=== PATIENT | female | born 1980 | race Caucasian/White ===

== ENCOUNTER 2018-02-08 18:54 | Emergency (ER) | payer MEDICAID ==
[~2018-02-08] VITALS: Ht 154.9 cm; Wt 98.0 kg
[2018-02-08 18:56] VITALS: BP 164/105; PULSE 103; RESP 16; TEMP 98.6; O2SAT 100
[2018-02-08] MEDS ORDERED: LEVO75TA3 PO (19:07)
[2018-02-08] MEDS ORDERED: MONT10TA2 PO (19:07)
[2018-02-08] MEDS ORDERED: AMLO5TAB2 PO (19:07)
[2018-02-08] MEDS ORDERED: LORA-650 PO (19:07)
[2018-02-08] MEDS ORDERED: ALBUAER3 INH (19:07)
[2018-02-08] MEDS ORDERED: CYMB60CA PO (19:07)
[2018-02-08] MEDS ORDERED: SODIUM CHLOR 0.9% 1000 ML INJ 1,000 ML IV SCH (19:22)
--- NOTE | 2018-02-08 19:22 | PD ---
HPI Chief Complaint: Fall Time Seen by Provider: 19:07 Travel History International Travel<30 days: No Contact w/Intl Traveler<30days: No Traveled to known affect area: No History of Present Illness HPI 37-year-old female with PMH of asthma, hypertension presents to the ED via [facility] for evaluation after being thrown from a horse. Patient states that she was riding with her 12-year-old daughter when her daughter's horse took off running. She states that her course ran after the first worse and bucked, throwing her into the ear. She states that she landed on the back of her head and endorses brief loss of consciousness. On presentation she complains of 10/ 10 left hip pain, 7/10 posterior headache and 5/10 left shoulder pain. She endorses accompanying nausea. She denies dizziness, vision changes, chest pain , palpitations, shortness of breath, abdominal pain, numbness, tingling, weakness of the extremities. She has not been ambulatory since the accident. She denies risk of , states that she is currently menstruating. PFSH Past Medical History ?: Unknown LMP: currently on it Past Surgical History Section: Yes (x2) Tonsillectomy: Yes Social History Alcohol Use: Yes (rare) Tobacco Use: No Substance Use: No Allergies-Medications (Allergen,Severity, Reaction): Coded Allergies: iodine (Verified Allergy, Intermediate, 02/08/18) hives Reported Meds & Prescriptions Reported Meds & Active Scripts Active Robaxin (Methocarbamol) 500 Mg Tab 1,000 Mg PO TID Ibuprofen 800 Mg Tab 800 Mg PO Q8H PRN Reported Amlodipine (Amlodipine Besylate) 5 Mg Tab 5 Mg PO DAILY Proair Hfa 8.5 GM Inh (Albuterol Sulfate) 90 Mcg/Act Aer 1 Puff INH Q4H PRN 108 mcg/actuation Levothyroxine (Levothyroxine Sodium) 75 Mcg Tab 75 Mcg PO DAILY Allergy Relief (Loratadine) 10 Mg Tab 10 Mg PO BID Singulair (Montelukast Sodium) 10 Mg Tab 10 Mg PO HS Cymbalta DR (Duloxetine HCl) 60 Mg Capdr 60 Mg PO DAILY Review of Systems Except as stated in HPI: all other systems reviewed are Neg Physical Exam Narrative GENERAL: Well-nourished, well-developed white female in no acute distress. On a backboard, wearing a c-collar. SKIN: Warm and dry. Thorough evaluation reveals no edema, ecchymosis, abrasion , or laceration of the skin. HEAD: Normocephalic. Atraumatic. No raccoon eyes or curtis sign. + tenderness to palpation of the occipital skull. No bony step-offs. No malocclusion of the teeth. EYES: No scleral icterus. No injection or drainage. PERRLA. EOMI. ENT: Pearly martin tympanic membrane is bilaterally. Nasal mucosa is moist. Oropharynx without erythema, edema or exudate. NECK: Supple, trachea midline. No JVD or lymphadenopathy. C-collar retained pending radiological studies. CARDIOVASCULAR: Regular rate and rhythm without murmurs, gallops, or rubs. 2+ DP and radial pulses bilaterally. RESPIRATORY: Breath sounds clear and equal bilaterally. No accessory muscle use. GASTROINTESTINAL: Abdomen soft, non-tender, nondistended. + Bowel sounds MUSCULOSKELETAL: No cyanosis, or edema. No pain elicited with pelvic rocking. Tender to palpation of the left shoulder, left hip and left knee. Range of motion intact. No other tenderness to palpation or limitations to range of motion of the joints of the upper and lower extremities bilaterally. NEUROLOGICAL: Awake and alert. Cranial nerves II through XII intact. Motor and sensory grossly within normal limits. 5/5 muscle strength in all muscle groups. Normal speech. BACK: Nontender without obvious deformity. No CVA tenderness. No midline tenderness. Data Data Last Documented VS Vital Signs Date Time Temp Pulse Resp B/P (MAP) Pulse Ox O2 Delivery O2 Flow Rate FiO2 02/08/18 22:22 02/08/18 20:29 99 16 100 Room Air 02/08/18 18:[address] Brain W/O Iv Contrast(Rout) (02/08/18 19:07) Ct Cerv Spine W/O Contrast (02/08/18 19:07) Hip, Uni(Ap&Lat) Wo Ap Pelvis (02/08/18 19:07) Knee, Complete (4vws) (02/08/18 19:07) Shoulder, Complete (>2vws) (02/08/18 19:07) Ice/Cold Pack (02/08/18 19:07) Basic Metabolic Panel (Bmp) (02/08/18 19:22) Complete Blood Count With Diff (02/08/18 19:22) Prothrombin Time / Inr (Pt) (02/08/18 19:22) Act Partial Throm Time (Ptt) (02/08/18 19:22) Iv Access Insert/Monitor (02/08/18 19:22) Ecg Monitoring (02/08/18 19:22) Oximetry (02/08/18 19:22) Morphine Inj (Morphine Inj) (02/08/18 19:30) Ondansetron Inj (Zofran Inj) (02/08/18 19:30) Sodium Chlor 0.9% 1000 Ml Inj (Ns 1000 M (02/08/18 19:22) Sodium Chloride 0.9% Flush (Ns Flush) (02/08/18 19:30) Collar [place] (02/08/18 ) Potassium Chloride (Kcl) (02/08/18 20:30) Ct Thorax/ Chest Wo Iv Contras (02/08/18 ) Acetamin-Hydrocod 325-5 Mg ([place] 5-325 (02/08/18 21:15) Ct Abd/Pel W/O Iv Contrast (02/08/18 ) Ed Discharge Order (02/08/18 22:06) Labs Laboratory Tests Test 02/08/18 19:00 White Blood Count 9.7 TH/MM3 Red Blood Count 4.51 MIL/MM3 Hemoglobin 11.7 GM/DL Hematocrit 35.2 % Mean Corpuscular Volume 78.0 FL Mean Corpuscular Hemoglobin 25.8 PG Mean Corpuscular Hemoglobin Concent 33.1 % Red Cell Distribution Width 15.0 % Platelet Count 256 TH/MM3 Mean Platelet Volume 8.5 FL Neutrophils (%) (Auto) 58.1 % Lymphocytes (%) (Auto) 34.7 % Monocytes (%) (Auto) 4.0 % Eosinophils (%) (Auto) 2.6 % Basophils (%) (Auto) 0.6 % Neutrophils # (Auto) 5.6 TH/MM3 Lymphocytes # (Auto) 3.4 TH/MM3 Monocytes # (Auto) 0.4 TH/MM3 Eosinophils # (Auto) 0.3 TH/MM3 Basophils # (Auto) 0.1 TH/MM3 CBC Comment DIFF FINAL Differential Comment Prothrombin Time 10.0 SEC Prothromb Time International Ratio 1.0 RATIO Activated Partial Thromboplast Time 23.3 SEC Blood Urea Nitrogen 10 MG/DL Creatinine 1.01 MG/DL Random Glucose 131 MG/DL Calcium Level 9.1 MG/DL Sodium Level 141 MEQ/L Potassium Level 3.4 MEQ/L Chloride Level 107 MEQ/L Carbon Dioxide Level 25.5 MEQ/L Anion Gap 9 MEQ/L Estimat Glomerular Filtration Rate 62 ML/MIN MDM Medical Decision Making Medical Screen Exam Complete: Yes Emergency Medical Condition: Yes Differential Diagnosis fall from horse versus musculoskeletal pain versus fracture versus contusion versus other Narrative Course 37-year-old female with PMH of asthma, hypertension presents to the ED via [facility] for evaluation after being thrown from a horse. The patient was not called a trauma, life flighted due to distance from the hospital. Patient states that she was riding with her 12-year-old daughter when her horse and bucked, throwing her into the air. She states that she landed on the back of her head and endorses brief LOC. On presentation she complains of 10/10 left hip pain, 7/10 posterior headache and 5/10 left shoulder pain. She denies risk of , states that she is currently menstruating. Patient arrives alert , oriented, on a backboard and wearing a c-collar. She is cleared from the backboard. C-collar retained pending radiological studies. No focal neuro deficits. Tenderness to palpation of the left shoulder, left hip, left knee. No limitations to range of motion noted. IV was established. Patient was administered 4 mg morphine, 4 mg Zofran, [address] brain and cervical spine negative per radiology read. CT abdomen pelvis without dye negative per radiology read. Left hip x-ray normal per radiology read. Left knee x-ray normal per radiology read Left shoulder x-ray intact per radiology read. CBC unremarkable. Coags unremarkable. CMP with mild hypokalemia, otherwise unremarkable. On recheck patient states pain is improved but not resolved. She was administered 5 mg [place]. I discussed the results of the workup with the patient. She endorses chronic hypokalemia. She was administered 40 mEq potassium by mouth. Patient was allowed to ambulate in the ED. She is instructed to use RICE therapy, return to normal, gentle activity as tolerated, follow with her primary care provider. She is provided with a short course of muscle relaxants and anti-inflammatories. She is stable and discharged home. Diagnosis Primary Impression: Fall from horse Qualified Codes: V80.010A - Animal-rider injured by fall from or being thrown from horse in noncollision accident, initial encounter Additional Impression: Musculoskeletal pain Referrals: Primary Care Physician Additional Instructions: Rest, hydrate. Return to normal, gentle activity as tolerated. Take anti-inflammatories and muscle relaxers as prescribed. Do not drive while taking muscle relaxants as this may cause drowsiness. Follow-up with the primary care provider. Return to the ED for worsening symptoms or any urgent or emergent medical condition. Scripts Methocarbamol (Robaxin) 500 Mg Tab 1000 MG PO TID for Muscle Spasm, #20 TAB 0 Refills Prov: Nolan Caceres MD 02/08/18 Ibuprofen (Ibuprofen) 800 Mg Tab 800 MG PO Q8H Y for PAIN SCALE 1 TO 10, #15 TAB 0 Refills Prov: Nolan Caceres MD 02/08/18 Disposition: 01 DISCHARGE HOME Condition: Stable Nell Crabtree Feb 08, 2018 19:22
[2018-02-08] MEDS ORDERED: ONDANSETRON HCL 4 MG/2 ML VIAL IVP ONE (19:30)
[2018-02-08] MEDS ORDERED: MORPHINE SULFATE 4 MG/ML INJ IV PUSH ONE (19:30)
[2018-02-08] MEDS ORDERED: SODIUM CHLORIDE 0.9% FLUSH 10 ML FLUSH IV FLUSH PRN (19:30)
--- NOTE | 2018-02-08 19:39 | RADRPT ---
EXAM DATE/TIME: 02/08/2018 19:18 [facility] COMPARISON: No previous studies available for comparison. INDICATIONS : Left hip pain; fell off horse tonight. MEDICAL HISTORY : None. SURGICAL HISTORY : None. ENCOUNTER: Initial ACUITY: 1 day PAIN SCORE: 8/10 LOCATION: Left hip. FINDINGS: A two view examination of the left hip was performed. The primary and secondary trabecular pattern o f the femoral neck is intact. The hip joint is of normal width without significant sclerosis or bony hypertrophy. The acetabulum is grossly intact. CONCLUSION: Normal radiographic appearance of the left hip. Lino Guerra MD on February 08, 2018 at 19:36 Board Certified Radiologist. This report was verified electronically.
--- NOTE | 2018-02-08 19:42 | RADRPT ---
EXAM DATE/TIME: 02/08/2018 19:20 [facility] COMPARISON: No previous studies available for comparison. INDICATIONS : Left knee pain; fell off horse today. MEDICAL HISTORY : None. SURGICAL HISTORY : None. ENCOUNTER: Initial ACUITY: 1 day PAIN SCORE: 7/10 LOCATION: Left knee. FINDINGS: Four view examination of the left knee demonstrates no evidence of fracture or dislocation. Bony min eralization is normal. The articular surfaces are intact. The suprapatellar soft tissues have a nor mal configuration. CONCLUSION: Radiographic appearance of the left knee is within normal limits. Lino Guerra MD on February 08, 2018 at 19:39 Board Certified Radiologist. This report was verified electronically.
[2018-02-08 19:43] LABS: AUTOMATED NEUTROPHIL # 5.6 TH/MM3 (1.8-7.7); BASOPHIL # 0.1 TH/MM3 (0-0.2); BASOPHIL % 0.6 % (0.0-2.0); EOSINOPHIL # 0.3 TH/MM3 (0-0.4); EOSINOPHIL % 2.6 % (0.0-4.0); HEMATOCRIT 35.2 % (35.0-46.0); HEMOGLOBIN 11.7 GM/DL (11.6-15.3); LYMPH % 34.7 % (9.0-44.0); LYMPHOCYTE # 3.4 TH/MM3 (1.0-4.8); MEAN CORPUSCULAR HEMOGLOBIN 25.8 PG (27.0-34.0); MEAN CORPUSCULAR HGB CONC 33.1 % (32.0-36.0); MEAN PLATELET VOLUME 8.5 FL (7.0-11.0); MONOCYTE # 0.4 TH/MM3 (0-0.9); NEUT % 58.1 % (16.0-70.0); PLATELET COUNT 256 TH/MM3 (150-450); RED BLOOD COUNT 4.51 MIL/MM3 (4.00-5.30); WHITE BLOOD COUNT 9.7 TH/MM3 (4.0-11.0)
--- NOTE | 2018-02-08 19:43 | RADRPT ---
EXAM DATE/TIME: 02/08/2018 19:23 [facility] COMPARISON: No previous studies available for comparison. INDICATIONS : Left shoulder pain; fell off horse. MEDICAL HISTORY : None. SURGICAL HISTORY : None. ENCOUNTER: Initial ACUITY: 1 day PAIN SCORE: 6/10 LOCATION: Left shoulder. FINDINGS: Multiple view examination of the left shoulder demonstrates no evidence of fracture or dislocation. The glenohumeral and acromioclavicular joints are maintained. There is normal range of motion betwee n internal and external rotation. Bony mineralization is normal. CONCLUSION: Intact left shoulder. Lino Guerra MD on February 08, 2018 at 19:40 Board Certified Radiologist. This report was verified electronically.
--- NOTE | 2018-02-08 20:03 | RADRPT ---
EXAM DATE/TIME: 02/08/2018 19:34 [facility] COMPARISON: No previous studies available for comparison. INDICATIONS : Fell off a horse RADIATION DOSE: 65.35 CTDIvol (mGy) MEDICAL HISTORY : None SURGICAL HISTORY : None. ENCOUNTER: Initial ACUITY: 1 day PAIN SCALE: 10/10 LOCATION: cranial TECHNIQUE: Multiple contiguous axial images were obtained of the head. Using automated exposure control and adj ustment of the mA and/or kV according to patient size, radiation dose was kept as low as reasonably a chievable to obtain optimal diagnostic quality images. DICOM format image data is available electro nically for review and comparison. FINDINGS: CEREBRUM: The ventricles are normal for age. No evidence of midline shift, mass lesion, hemorrhage or acute in farction. No extra-axial fluid collections are seen. POSTERIOR FOSSA: The cerebellum and brainstem are intact. The 4th ventricle is midline. The cerebellopontine angle i s unremarkable. EXTRACRANIAL: The visualized portion of the orbits is intact. SKULL: The calvaria is intact. No evidence of skull fracture. CONCLUSION: No bleed or other acute intracranial abnormality demonstrated. Lino Guerra MD on February 08, 2018 at 19:59 Board Certified Radiologist. This report was verified electronically.
--- NOTE | 2018-02-08 20:05 | RADRPT ---
EXAM DATE/TIME: 02/08/2018 19:34 [facility] COMPARISON: No previous studies available for comparison. INDICATIONS : Fell off a horse RADIATION DOSE: 23.08 CTDIvol (mGy) MEDICAL HISTORY : None SURGICAL HISTORY : None. ENCOUNTER: Initial ACUITY: 1 day PAIN SCALE: 10/10 LOCATION: neck TECHNIQUE: Volumetric scanning of the cervical spine was performed. Multiplanar reconstructions in the sagittal, coronal and oblique axial planes were performed. Using automated exposure control and adjustment o f the mA and/or kV according to patient size, radiation dose was kept as low as reasonably achievable to obtain optimal diagnostic quality images. DICOM format image data is available electronically f or review and comparison. FINDINGS: VERTEBRAE: Normal vertebral body height. ALIGNMENT: No evidence of subluxation. C2-C3: The bony spinal canal is normal in size. No evidence of disc bulge or herniation. The neural forami na are bilaterally patent. C3-C4: The bony spinal canal is normal in size. No evidence of disc bulge or herniation. The neural forami na are bilaterally patent. C4-C5: The bony spinal canal is normal in size. No evidence of disc bulge or herniation. The neural forami na are bilaterally patent. C5-C6: The bony spinal canal is normal in size. No evidence of disc bulge or herniation. The neural forami na are bilaterally patent. C6-C7: The bony spinal canal is normal in size. No evidence of disc bulge or herniation. The neural forami na are bilaterally patent. C7-T1: The bony spinal canal is normal in size. No evidence of disc bulge or herniation. The neural forami na are bilaterally patent. CONCLUSION: Negative study. The cervical spine is intact. Lino Guerra MD on February 08, 2018 at 20:01 Board Certified Radiologist. This report was verified electronically.
[2018-02-08 20:08] LABS: BICARBONATE 25.5 MEQ/L (21.0-32.0); CALCIUM 9.1 MG/DL (8.5-10.1); CREATININE 1.01 MG/DL (0.50-1.00)
[2018-02-08 20:29] VITALS: BP 157/77; PULSE 99; RESP 16; O2SAT 100
[2018-02-08] MEDS ORDERED: POTASSIUM CHLORIDE 20 MEQ CONTROLLED RELEASE TAB PO ONE (20:30)
[2018-02-08] MEDS ORDERED: ROBA500T PO (20:33)
[2018-02-08] MEDS ORDERED: IBUP1TAB7 PO (20:33)
[2018-02-08] MEDS ORDERED: ACETAMINOPHEN/HYDROcodone 325 MG/5 MG TAB PO ONE (21:15)
--- NOTE | 2018-02-08 22:01 | RADRPT ---
EXAM DATE/TIME: 02/08/2018 21:24 [facility] COMPARISON: No previous studies available for comparison. INDICATIONS : Patient thrown from horse, overall pain. ORAL CONTRAST: No oral contrast ingested. RADIATION DOSE: 20.42 CTDIvol (mGy) MEDICAL HISTORY : None SURGICAL HISTORY : None. ENCOUNTER: Initial ACUITY: 1 day PAIN SCALE: 9/10 LOCATION: abdomen/pelvis TECHNIQUE: Volumetric scanning of the abdomen and pelvis was performed. Using automated exposure control and ad justment of the mA and/or kV according to patient size, radiation dose was kept as low as reasonably achievable to obtain optimal diagnostic quality images. DICOM format image data is available electro nically for review and comparison. FINDINGS: LOWER LUNGS: The visualized lower lungs are clear. LIVER: Homogeneous density without lesion. There is no dilation of the biliary tree. No calcified gallston es. SPLEEN: Normal size without lesion. PANCREAS: Within normal limits. KIDNEYS: Normal in size and shape. There is no mass, stone, or hydronephrosis. ADRENAL GLANDS: Within normal limits. VASCULAR: There is no aortic aneurysm. BOWEL/MESENTERY: The stomach, small bowel, and colon demonstrate no acute abnormality. There is no free intraperitone al air or fluid. ABDOMINAL WALL: Within normal limits. RETROPERITONEUM: There is no lymphadenopathy. BLADDER: No wall thickening or mass. REPRODUCTIVE: Within normal limits. Tampon present. INGUINAL: There is no lymphadenopathy or hernia. MUSCULOSKELETAL: No fracture or other acute bony abnormality demonstrated. CONCLUSION: No acute abnormality. Lino Guerra MD on February 08, 2018 at 21:57 Board Certified Radiologist. This report was verified electronically.
--- NOTE | 2018-02-08 22:03 | RADRPT ---
EXAM DATE/TIME: 02/08/2018 21:24 [facility] COMPARISON: No previous studies available for comparison. INDICATIONS : Patient thrown from horse, overall pain. RADIATION DOSE: 20.42 CTDIvol (mGy) ; Combined studies - Thorax/Abdomen/Pelvis MEDICAL HISTORY : None SURGICAL HISTORY : None. ENCOUNTER: Initial ACUITY: 1 day PAIN SCALE: 9/10 LOCATION: chest TECHNIQUE: Volumetric scanning of the chest was performed. Using automated exposure control and adjustment of t he mA and/or kV according to patient size, radiation dose was kept as low as reasonably achievable to obtain optimal diagnostic quality images. DICOM format image data is available electronically for r eview and comparison. Follow-up recommendations for detected pulmonary nodules are based at a minimum on nodule size and pa tient risk factors according to Fleischner Society Guidelines. FINDINGS: LUNGS: There is no consolidation or pneumothorax. No concerning pulmonary nodule is visualized. PLEURAE: There is no pleural thickening or pleural effusion. MEDIASTINUM: The heart and great vessels demonstrate no acute abnormality. There is no mediastinal or hilar lymph adenopathy. AXILLAE: Within normal limits. No lymphadenopathy. MUSCULOSKELETAL: Within normal limits for patient age. MISCELLANEOUS: The visualized upper abdominal organs demonstrate no acute abnormality. CONCLUSION: No acute abnormality. Lino Guerra MD on February 08, 2018 at 22:00 Board Certified Radiologist. This report was verified electronically.
== END 2018-02-08 22:35 | disposition home or self-care (01) ==
LOC: NEPE 18:54
DX: M25.552 Pain in left hip (principal); R51 Headache; M25.512 Pain in left shoulder; R11.0 Nausea; E87.6 Hypokalemia; J45.909 Unspecified asthma, uncomplicated; I10 Essential (primary) hypertension; V80.010A Animal-rider injured by fall from or being thrown from horse in noncollision accident, initial encounter; Z79.899 Other long term (current) drug therapy
CPT/HCPCS: 70450; 71250; 72125; 73030; 73502; 73564; 74176; 80048; 85025; 85610; 85730; 96374; 96375; 99285; J2270; J2405; J7030; L0150; A0431-QM-SH; A0436-QM-SH